=== PATIENT | female | born 1955 | race African-American/Black ===

== ENCOUNTER → 2018-06-03 10:20 | Outpatient (CLI) | payer MEDICARE, SELFPAY ==
[2018-06-03 11:27] LABS: Amphetamine Urine VISTA NEGATIVE (<1000 ng/mL); Barbiturate Urine VISTA NEGATIVE (< 200 ng/mL); Benzodiazepine Urine VISTA NEGATIVE (< 200 ng/mL); Cocaine Urine VISTA NEGATIVE (< 300 ng/mL); Ecstacy Urine VISTA NEGATIVE (< 500 ng/mL); Methadone Urine VISTA NEGATIVE (< 300 ng/mL); PCP Urine VISTA NEGATIVE (< 25 ng/mL); THC Urine VISTA NEGATIVE (< 50 ng/mL); Vista UDS pH Range 5
== END ==
PROVIDERS: Family Provider Family Medicine; PCP Family Medicine; Referring Provider Psychiatry & Neurology Psychiatry; Visit Provider Psychiatry & Neurology Psychiatry
DX: R53.83 Other fatigue (principal); F19.10 Other psychoactive substance abuse, uncomplicated; Z79.899 Other long term (current) drug therapy
CPT/HCPCS: 80307

== ENCOUNTER 2021-06-16 11:52 | Outpatient (CLI) | payer MEDICARE, MEDICAID, SELFPAY ==
[2021-06-16 11:53] VITALS: BP 152/75; PULSE 87; RESP 16; TEMP 36.3; O2SAT 98; BMI 33.8
[2021-06-16 12:20] VITALS: BMI 33.8
--- NOTE | 2021-06-16 13:25 | ED.RN ---
WRITTEN ORDER TO ADMINISTER PER DR PARMAR ON FILE
== END 2021-06-16 13:38 | disposition home or self-care (01) ==
PROVIDERS: PCP Family Medicine; Visit Provider Emergency Medicine
DX: Z00.00 Encounter for general adult medical examination without abnormal findings (principal)

== ENCOUNTER 2023-01-31 03:13 | Emergency (ER) | payer MEDICARE, MEDICAID, SELFPAY ==
[2023-01-31 03:18] VITALS: BP 150/97; PULSE 86; RESP 20; TEMP 36.3; O2SAT 99; BMI 28.8
--- NOTE | 2023-01-31 03:31 | EX.ED.DYSGE1 ---
HPI History of Present Illness Chief Complaint: General Illness Informant: patient and family (Daughter) Narrative Narrative: Patient presents for insomnia. It is around 3 AM and her daughter brings her in because she is not tired and unable to get to sleep. This has been going on for months apparently but this is the worst night. Interventions that they have tried at home are NyQuil and Benadryl, increase activities and exercise throughout the day to make her more tired. These have been tried intermittently over the last couple weeks. No other medications including melatonin. No recent illness. Daughter states she was diagnosed with schizophrenia 20 years ago or so, she was on antipsychotics for a long time. She has been weaned off of those gradually over this past year. She has tried trazodone but it did not agree with her and she did not continue that. Has a history of anxiety as well. On buspirone for that. [facility] Medical History (Updated 01/31/23 @ 03:[address] Larry Key MD) Diabetes Hypertension Kidney disease Occasional tremors Tremors of nervous system Home Medications buspirone 15 mg tablet 15 mg PO DAILY 01/31/23 [History Last Taken Unknown] diltiazem HCl 240 mg capsule,extended release 24 hr, controlled 240 mg PO Q24H 01/31/23 [History Last Taken Unknown] hydrochlorothiazide 25 mg tablet 25 mg PO DAILY 01/31/23 [History Last Taken Unknown] lisinopril 30 mg tablet 30 mg PO DAILY 01/31/23 [History Last Taken Unknown] metformin 500 mg tablet 500 mg PO DAILY 01/31/23 [History Last Taken Unknown] potassium chloride 10 mEq tablet,extended release 10 meq PO DAILY 01/31/23 [History Last Taken Unknown] temazepam 15 mg capsule (Restoril) 15 mg PO QHS PRN sleep #10 caps 01/31/23 [Rx Last Taken Unknown] Allergy/AdvReac Type Severity Reaction Status Date / Time No Known Allergies Allergy Verified 01/31/23 03:14 Social History Smoking Status: Current every day smoker tobacco type: cigarettes ROS ROS ED Constitutional Constitutional ED: Reports other Details: Insomnia, see HPI ; Denies chills or fever(s) Eyes Eyes: Denies change in vision or diplopia ENT ENT ED: Denies rhinorrhea or sore throat Cardiovascular Cardiovascular: Denies chest pain or palpitations Respiratory/Chest Respiratory/Chest: Denies cough or dyspnea Gastrointestinal Gastrointestinal: Denies abdominal pain, diarrhea, nausea or vomiting Genitourinary Genitourinary ED: Denies dysuria or hematuria Musculoskeletal Musculoskeletal: Denies back pain or neck pain Integumentary Denies abscess or rash Neurologic Neurologic: Denies headache(s), paresthesias or weakness Psychiatric Psychiatric: Denies anxiety or suicidal thoughts EXAM Physical Exam Const Vital Signs: 01/31/23 03:18 01/31/23 03:28 Temperature 97.4 F L Temperature Source Temporal Pulse Rate 86 Respiratory Rate 20 H Respiratory Effort Normal Respiratory Pattern Normal Blood Pressure 150/97 H Blood Pressure Mean 114 Pulse Ox 99 Oxygen Delivery Method Room Air Positive well nourished and well developed General Appearance ED: well developed and NAD HEENT Reports moist mucous membranes HEENT Narrative: Tic versus dystonia, doing some repetitive lipsmacking/movement. Suppresses it when she speaks. normocephalic and atraumatic Eyes PERRL and EOMs intact bilaterally Neck full ROM, no lymphadenopathy and supple Neck Narrative: No thyromegaly or thyroid tenderness Resp normal respiratory effort and clear to auscultation bilaterally Cardio regular rate, regular rhythm and no murmurs GI non-tender and non-distended Auscultation: normoactive bowel sounds Palpation: soft Back/Spine no CVA tenderness General Back: other FROM Extremity normal to inspection General Extremety ED: Negative for edema, pulses abnormal or tenderness General Extremity: Negative for edema or pulses abnormal Neuro oriented x3, CN's II-XII intact bilaterally and no sensory deficits noted Sensorium / Orientation: awake and alert Motor Exam: strength 5/5 throughout Skin no rashes or lesions noted and no wounds MDM MDM MDM Narrative Medical decision making narrative: Benign medical screening exam and vital signs. Discussed options that we could do tonight, basically temazepam or Ambien. Happy to prescribe 1 of these and try 1 tonight, family and patient understand this is trial and error, will prescribe short course of Restoril and give 1 of those after we discussed all that, and we discussed using melatonin 5 mg nightly as well. Close outpatient follow-up advised. I do not think she needs any emergent testing right now. Discharge Plan Triage Chief Complaint: General Illness ED Provider: Larry Key Dx/Rx/DC Orders Clinical Impression: Insomnia Instructions: ED Insomnia Prescriptions: New temazepam [Restoril] 15 mg capsule 15 mg PO QHS PRN (Reason: sleep) Qty: 10 0RF No Action diltiazem HCl 240 mg capsule,ext.rel 24h degradable 240 mg PO Q24H Patient Comments: take 1 capsule by mouth once daily buspirone 15 mg tablet 15 mg PO DAILY hydrochlorothiazide 25 mg tablet 25 mg PO DAILY Patient Comments: take 1 tablet by mouth once daily metformin 500 mg tablet 500 mg PO DAILY Patient Comments: take 1 tablet by mouth EVERY MORNING WITH BREAKFAST lisinopril 30 mg tablet 30 mg PO DAILY Patient Comments: take 1 tablet by mouth once daily potassium chloride 10 mEq tablet extended release 10 meq PO DAILY Primary Care Provider: Jef Jtet Referrals: Jef Jett MD [Primary Care Provider] - (call for follow up appt) Disposition Disposition: Home, Self Care
[2023-01-31] MEDS: Temazepam 15 MG Capsule PO (03:45)
== END 2023-01-31 03:48 | disposition home or self-care (01) ==
PROVIDERS: Emergency Provider Emergency Medicine; PCP Family Medicine; Visit Provider Emergency Medicine
DX: G47.00 Insomnia, unspecified (principal); E11.9 Type 2 diabetes mellitus without complications; I10 Essential (primary) hypertension; F17.210 Nicotine dependence, cigarettes, uncomplicated; F41.9 Anxiety disorder, unspecified; Z79.899 Other long term (current) drug therapy; Z79.84 Long term (current) use of oral hypoglycemic drugs
CPT/HCPCS: 99282

== ENCOUNTER 2023-02-14 04:09 | Emergency (ER) | payer MEDICARE, SELFPAY ==
[2023-02-14 04:10] VITALS: PULSE 76; RESP 18; TEMP 37.1; O2SAT 100; BMI 29.1
--- NOTE | 2023-02-14 05:00 | EDS_ITS ---
HPI History of Present Illness Chief Complaint: Med Refill Informant: patient Onset/Context/Timing Onset: Days Context: Gradual Onset Timing: Continuous Quality: Tired Location: Generalized Worsened by: Nothing Relieved by: Nothing Narrative Narrative: Patient presents requesting refill of her Restoril. Patient states she was prescribed this from the emergency department in the past. Patient states she has not slept in the past couple days. Patient states she feels tired. Patient denies any chest pain or shortness of breath. Patient denies any nausea or vomiting. Patient denies any cough. Patient denies any fevers or chills. Patient states she has an appointment with her primary care physician in 2 days. [facility] Medical History Diabetes Hypertension Kidney disease Occasional tremors Tremors of nervous system Home Medications buspirone 15 mg tablet 15 mg PO DAILY 01/31/23 [History Last Taken Unknown] diltiazem HCl 240 mg capsule,extended release 24 hr, controlled 240 mg PO Q24H 01/31/23 [History Last Taken Unknown] hydrochlorothiazide 25 mg tablet 25 mg PO DAILY 01/31/23 [History Last Taken Unknown] lisinopril 30 mg tablet 30 mg PO DAILY 01/31/23 [History Last Taken Unknown] metformin 500 mg tablet 500 mg PO DAILY 01/31/23 [History Last Taken Unknown] potassium chloride 10 mEq tablet,extended release 10 meq PO DAILY 01/31/23 [History Last Taken Unknown] temazepam 15 mg capsule (Restoril) 15 mg PO QHS PRN sleep #3 caps 02/14/23 [Rx Last Taken Unknown] Allergy/AdvReac Type Severity Reaction Status Date / Time No Known Allergies Allergy Verified 02/14/23 04:10 Social History Smoking Status: Current every day smoker tobacco type: cigarettes ROS ROS ED Constitutional Constitutional ED: Denies chills or fever(s) Eyes Eyes: Denies blurry vision or change in vision ENT ENT ED: Denies rhinorrhea or sore throat Cardiovascular Cardiovascular: Denies chest pain or palpitations Respiratory/Chest Respiratory/Chest: Denies cough or dyspnea Gastrointestinal Gastrointestinal: Denies nausea or vomiting Genitourinary Genitourinary ED: Denies dysuria or hematuria Musculoskeletal Musculoskeletal: Denies back pain or neck pain Integumentary Denies abscess or rash Neurologic Neurologic: Denies headache(s) or weakness Allergic/Immunologic Allergic/Immunologic ED: Denies mouth swelling or urticaria EXAM Physical Exam Const Vital Signs: 02/14/23 04:10 Temperature 98.7 F Temperature Source Temporal Pulse Rate 76 Respiratory Rate 18 Pulse Ox 100 Positive well nourished and well developed General Appearance ED: well developed and NAD HEENT Reports moist mucous membranes Neck supple and no JVD Resp normal respiratory effort and clear to auscultation bilaterally Cardio regular rate and regular rhythm GI non-tender and non-distended Palpation: soft Neuro oriented x3, CN's II-XII intact bilaterally and no sensory deficits noted Sensorium / Orientation: alert Motor Exam: strength 5/5 throughout Psych mental status grossly normal MDM MDM MDM Narrative Medical decision making narrative: Patient's prescription history was reviewed. Patient did have 1 prescription for temazepam 10 tablets written on 01/31/2023. Patient will be given a prescription for 3 tablets. Patient was instructed to follow-up with her primary care physician for further prescriptions. Patient and family understood and were agreeable with the plan. All questions were answered. Discharge Plan Triage Chief Complaint: Med Refill ED Provider: Jeremías Jeffers Dx/Rx/DC Orders Clinical Impression: Insomnia, Anxiety Instructions: ED Insomnia Prescriptions: Continued temazepam [Restoril] 15 mg capsule 15 mg PO QHS PRN (Reason: sleep) Qty: 3 0RF No Action diltiazem HCl 240 mg capsule,ext.rel 24h degradable 240 mg PO Q24H Patient Comments: take 1 capsule by mouth once daily buspirone 15 mg tablet 15 mg PO DAILY hydrochlorothiazide 25 mg tablet 25 mg PO DAILY Patient Comments: take 1 tablet by mouth once daily metformin 500 mg tablet 500 mg PO DAILY Patient Comments: take 1 tablet by mouth EVERY MORNING WITH BREAKFAST lisinopril 30 mg tablet 30 mg PO DAILY Patient Comments: take 1 tablet by mouth once daily potassium chloride 10 mEq tablet extended release 10 meq PO DAILY Primary Care Provider: Jef Jett Referrals: Jef Jett MD [Primary Care Provider] - 5-7 Days Hailee Garcia [Non-Staff] - 2 Days Disposition Disposition: Home, Self Care
== END 2023-02-14 06:03 | disposition home or self-care (01) ==
PROVIDERS: Emergency Provider Emergency Medicine; PCP Family Medicine; Visit Provider Emergency Medicine
DX: G47.00 Insomnia, unspecified (principal); E11.9 Type 2 diabetes mellitus without complications; F41.9 Anxiety disorder, unspecified; F17.210 Nicotine dependence, cigarettes, uncomplicated; I10 Essential (primary) hypertension; Z79.899 Other long term (current) drug therapy; Z79.84 Long term (current) use of oral hypoglycemic drugs
CPT/HCPCS: 99282

== ENCOUNTER → 2024-09-17 | Outpatient (CLI) | payer MEDICARE, MEDICAID, SELFPAY ==
--- NOTE | 2024-09-17 11:48 | RAD_ITS ---
PROCEDURE: ELBOW MIN 3 VIEWS 09/17/2024 REASON FOR EXAM: RIGHT ELBOW PAIN WITH NO KNOWN INJURY TECHNIQUE: ELBOW MIN 3 VIEWS COMPARISON: None. RAD/Elbow min 3 Views IMPRESSION: No significant right elbow joint effusion is seen. A moderate ulnar olecranon enthesophyte is seen. Mild chronic appearing lateral epicondylar enthesophyte. Calcification distal to the medial epicondyle of the distal right humerus seen, perhaps due to remote injury. No acute fracture site is seen. Mild degenerative changes are seen of the humeroulnar articulation. No signifi cant joint narrowing is noted. Satisfactory osseous alignment is seen throughout Reading Location: [place] [id number]
== END | disposition home or self-care (01) ==
LOC: MTRAD 11:46
PROVIDERS: PCP Family Medicine; Referring Provider Nurse Practitioner; Visit Provider Nurse Practitioner
DX: M25.521 Pain in right elbow (principal)
CPT/HCPCS: 73080